=== PATIENT | male | born 1965 | race Caucasian/White ===

== ENCOUNTER 2025-06-09 22:21 | Emergency (ER) | payer OTHER ==
[~2025-06-09] VITALS: Ht 180.3 cm; Wt 77.1 kg
[2025-06-09 22:36] VITALS: BP 162/84
[2025-06-09] MEDS ORDERED: AMOCLA875 PO (23:19)
[2025-06-09] MEDS ORDERED: Bacitracin Zinc Oint 1GRAM UD Packet TOP ONE (23:20)
== END 2025-06-09 23:52 | disposition home or self-care (01) ==
LOC: ER 22:21
DX: S51.852A Open bite of left forearm, initial encounter (principal); S61.551A Open bite of right wrist, initial encounter; Z91.030 Bee allergy status; Z88.2 Allergy status to sulfonamides; W54.0XXA Bitten by dog, initial encounter
CPT/HCPCS: 99283; A9270